=== PATIENT | female | born 1965 | race African-American/Black ===

== ENCOUNTER 2017-01-01 19:47 | Emergency (ER) | payer MEDICAID ==
[~2017-01-01] VITALS: Ht 170.2 cm; Wt 87.5 kg
[~2017-01-01 19:47] MED LIST: IBUP800T24 PO
[2017-01-01 20:55] LABS: Basophils # (auto) 0 uL; Basophils % (auto) 0.1 % (0.0-2.0); DEFINITIVE VIEW TRANSMISSION; Eosinophils # (auto) 0.1 uL; Eosinophils % (auto) 1.4 % (0.0-7.0); Hemoglobin 8.5 g/dL (12.2-16.2); Lymphocytes # (auto) 0.9 uL; Lymphocytes % (auto) 15.6 % (10.0-50.0); Mean Corpuscular Hgb Conc. 31.4 g/dL (32.0-36.0); Mean Corpuscular Volume 73.3 fL (80.0-100.0); Mean Platelet Volume 9.3 fL (7.4-10.4); Monocytes # (auto) 0.2 uL; Monocytes % (auto) 4.4 % (0.0-12.0); Neutrophils # (auto) 4.4 uL; Neutrophils % (auto) 78.5 % (37.0-80.0); Platelet Count (auto) 307 10^3/uL (140-450); Red Cell Distribution Width 17.2 % (11.6-16.0); White Blood Cell 5.6 10^3/uL (4.4-10.8)
[2017-01-01 21:15] LABS: Albumin 2.6 g/dL (3.4-5.0); BUN/Creatinine Ratio 21.6; Calcium 8.6 mg/dL (8.5-10.1); Potassium 3.1 mmol/L (3.5-5.1)
[2017-01-01 21:17] LABS: Bilirubin, Total 0.2 mg/dL (0.2-1.0); Total Protein 7.6 g/dL (6.4-8.2)
[2017-01-02] MEDS ORDERED: POTASSIUM CHL 10% (20 MEQ/15ML) ORAL SOLN PO ONE (08:00)
[2017-01-02] MEDS ORDERED: methylPREDNISolone SOD SUCC 125 MG/2 ML VL IV ONE (08:00)
[2017-01-02] MEDS ORDERED: PROMETHAZINE HCL 25 MG/ML 1ML IV ONE (08:00)
[2017-01-02] MEDS ORDERED: MORPHINE SULF INJ 2 MG/ML SYRINGE 1ML IV ONE (08:00)
[2017-01-02 12:21] VITALS: BP 155/66
== END 2017-01-02 12:58 | disposition home or self-care (01) ==
LOC: ER 19:55
DX: M17.0 Bilateral primary osteoarthritis of knee (principal); G89.29 Other chronic pain; M06.9 Rheumatoid arthritis, unspecified; E87.6 Hypokalemia; E11.65 Type 2 diabetes mellitus with hyperglycemia; E44.0 Moderate protein-calorie malnutrition; Z68.30 Body mass index [BMI] 30.0-30.9, adult; Z79.899 Other long term (current) drug therapy
CPT/HCPCS: 36415; 73562; 80053; 85025; 85652; 96374; 96375; 99285; J2270; J2550; J2930

== ENCOUNTER → 2018-01-07 | Emergency (ER) | payer MEDICAID ==
[~2018-01-07] VITALS: Ht 170.2 cm; Wt 105.2 kg
[~2018-01-07] MED LIST changes: +TRIAMCINOLONE 40MG/ML 1ML VIAL IM ONE
[2018-01-07 19:26] VITALS: BP 154/85
== END | disposition home or self-care (01) ==
LOC: ER 18:57
DX: M17.12 Unilateral primary osteoarthritis, left knee (principal); M06.9 Rheumatoid arthritis, unspecified; M79.646 Pain in unspecified finger(s)
CPT/HCPCS: 20610; 73700; 99284; J3301

== ENCOUNTER 2018-03-09 19:31 | Emergency (ER) | payer MEDICAID, OTHER ==
[~2018-03-09] VITALS: Ht 170.2 cm; Wt 104.3 kg
[~2018-03-09 19:31] MED LIST changes: +AML5T PO; +CHOL20007 PO; +DOCU-94 PO; +FLUT1SPR5; +FOLI1TAB6 PO; +IBUP600T27 PO; -IBUP800T24 PO; +LACT12LO4 EX; +LEVO750T2 PO; +LISI-646 PO; +METF-370 PO; +OXYB15TA12 PO; +SACC250C PO; -TRIAMCINOLONE 40MG/ML 1ML VIAL IM ONE
[2018-03-09 20:17] VITALS: BP 160/97
== END 2018-03-10 00:10 | disposition home or self-care (01) ==
LOC: ER 19:31
DX: M25.561 Pain in right knee (principal); G89.29 Other chronic pain; M19.90 Unspecified osteoarthritis, unspecified site; I10 Essential (primary) hypertension; Z88.5 Allergy status to narcotic agent; Z79.84 Long term (current) use of oral hypoglycemic drugs; Z79.899 Other long term (current) drug therapy
CPT/HCPCS: 73562

== ENCOUNTER 2018-03-10 22:05 | Emergency (ER) | payer MEDICAID, OTHER ==
[~2018-03-10] VITALS: Ht 170.2 cm; Wt 104.3 kg
[2018-03-10 22:24] VITALS: BP 154/92
[2018-03-10] MEDS ORDERED: TRIAMCINOLONE 40MG/ML 1ML VIAL IM ONE (23:45)
[2018-03-11] MEDS ORDERED: DEXAMETHASONE SOD PHOS 10MG/1ML VIAL INJ IM ONE (00:45)
== END 2018-03-11 01:53 | disposition home or self-care (01) ==
LOC: ER 22:08
DX: M17.0 Bilateral primary osteoarthritis of knee (principal); I10 Essential (primary) hypertension; M19.90 Unspecified osteoarthritis, unspecified site; Z88.6 Allergy status to analgesic agent
CPT/HCPCS: 93971; 96372

== ENCOUNTER 2018-04-24 22:31 | Emergency (ER) | payer MEDICAID ==
[~2018-04-24] VITALS: Ht 170.2 cm; Wt 107.0 kg
[~2018-04-24 22:31] MED LIST changes: +LACT12LO EX; -LACT12LO4 EX
[2018-04-24] MEDS ORDERED: cloNIDine HCL 0.1 MG TAB ONE (22:41)
[2018-04-24] MEDS ORDERED: cloNIDine HCL 0.1 MG TAB PO ONE (22:45)
[2018-04-25 01:13] VITALS: BP 132/90
[2018-04-25] MEDS ORDERED: KETOROLAC TROMETH 60MG/2ML VIAL IM ONE (01:45)
== END 2018-04-25 05:46 | disposition home or self-care (01) ==
LOC: ER 22:31
DX: M17.12 Unilateral primary osteoarthritis, left knee (principal); I10 Essential (primary) hypertension; Z79.84 Long term (current) use of oral hypoglycemic drugs; Z79.899 Other long term (current) drug therapy
CPT/HCPCS: 93971; 96372; 99284; J1885

== ENCOUNTER 2018-08-10 15:43 | Inpatient (IN) | payer MEDICAID ==
[~2018-08-10] VITALS: Ht 167.6 cm; Wt 101.3 kg
[~2018-08-10 15:43] MED LIST changes: -LACT12LO EX; -METF-370 PO; -OXYB15TA12 PO; -SACC250C PO
[2018-08-10 16:30] LABS: Basophils # (auto) 0 uL; Eosinophils # (auto) 0.1 uL; Eosinophils % (auto) 0.6 % (0.0-7.0); Monocytes # (auto) 0.5 uL; Monocytes % (auto) 4.5 % (0.0-12.0); Neutrophils # (auto) 9.9 uL
[2018-08-10 16:33] LABS: Basophils % (auto) 0.4 % (0.0-2.0); Hematocrit 20.8 % (36.0-46.0); Lymphocytes # (auto) 0.7 uL; Lymphocytes % (auto) 6.4 % (10.0-50.0); Mean Corpuscular Hemoglobin 22.9 pg (28.0-32.0); Mean Corpuscular Hgb Conc. 29.9 g/dL (32.0-36.0); Mean Corpuscular Volume 76.5 fL (80.0-100.0); Neutrophils % (auto) 88.1 % (37.0-80.0); Nucleated Red Blood Cells % 0.2 %; Platelet Count (auto) 451 10^3/uL (140-450); Red Blood Cells 2.72 10^6/uL (4.0-5.20); White Blood Cell 11.2 10^3/uL (4.4-10.8)
[2018-08-10 16:36] LABS: INR 1.03 (0.9-1.15); Partial Thromboplastin Time 26.2 sec (23.78-33.04)
[2018-08-10 16:40] LABS: Albumin 2.7 g/dL (3.4-5.0); Anion Gap 4 (5-15); Calcium 8.7 mg/dL (8.5-10.1); Carbon Dioxide 26 mmol/L (21-32); Chloride 109 mmol/L (98-107); Glucose 116 mg/dL (74-106); Potassium 4.1 mmol/L (3.5-5.1); Sodium 139 mmol/L (136-145)
[2018-08-10 16:44] LABS: Hemoglobin 6.2 g/dL (12.2-16.2); Red Cell Distribution Width 22.8 % (11.8-14.3)
[2018-08-10 16:45] LABS: Alanine Aminotransferase 14 U/L (13-56); Alkaline Phosphatase 109 U/L (45-117); Aspartate Aminotransferase 10 U/L (15-37); Bilirubin, Total 0.3 mg/dL (0.2-1.0); Total Protein 7.1 g/dL (6.4-8.2)
[2018-08-10] MEDS ORDERED: SODIUM CHLORIDE 0.9% 1,000 ML IVB ONE (17:58)
[2018-08-10] MEDS ORDERED: PANTOPRAZOLE 80 MG in SODIUM CHL 0.9% 60 ML IV ONE (18:00)
[2018-08-10] MEDS ORDERED: PANTOPRAZOLE 40 MG/10 ML VIAL IV ONE (19:15)
[2018-08-10] MEDS ORDERED: OCTREOTIDE ACETATE 100 MCG in SODIUM CHL 0.9% 50 ML IV ONE (19:15)
[2018-08-10 19:45] LABS: BUN/Creatinine Ratio 38.6; Blood Urea Nitrogen 27 mg/dL (7-18)
[2018-08-10 19:46] LABS: GFR African American > 60 mL/min; GFR Non-African American > 60 mL/min
[2018-08-10] MEDS: OCTREOTIDE ACETATE 500 MCG in SODIUM CHL 0.9% 99 ML IV SCH (20:26)
[2018-08-10] MEDS: SODIUM CHLORIDE 0.9% 1,000 ML IV SCH (20:43)
[2018-08-10] MEDS ORDERED: ONDANSETRON HCL 4 MG/2 ML VIAL IV PRN (20:45)
[2018-08-10] MEDS ORDERED: NITROGLYCERIN 0.4 MG SL TAB SL PRN (20:45)
[2018-08-10] MEDS ORDERED: MORPHINE SULFATE 10 MG/ML INJ 1ML SDV IV PRN (20:45)
[2018-08-10] MEDS: PANTOPRAZOLE 80 MG in SODIUM CHL 0.9% 60 ML IV SCH (20:53)
[2018-08-10 20:56] LABS: Urine Bacteria NONE SEEN /hpf (None Seen); Urine Blood Negative /uL (Negative); Urine Specific Gravity 1.017 (1.001-1.035); Urine WBC 1 /hpf (0 - 5)
[2018-08-10 21:37] VITALS: BP 158/75
[2018-08-10 21:53] VITALS: BP 143/71
[2018-08-10] MEDS ORDERED: NALBUPHINE HCL 10 MG/1ml INJECTION IV ONE (22:30)
[2018-08-10 23:10] VITALS: BP 131/62
[2018-08-11 00:09] VITALS: BP 147/76
[2018-08-11 00:25] VITALS: BP 138/72
[2018-08-11 03:39] VITALS: BP 144/73
[2018-08-11] MEDS: OCTREOTIDE ACETATE 500 MCG in SODIUM CHL 0.9% 99 ML IV SCH (05:15)
[2018-08-11 05:48] LABS: Basophils # (auto) 0 uL; Basophils % (auto) 0.4 % (0.0-2.0); Eosinophils # (auto) 0.1 uL; Eosinophils % (auto) 1.4 % (0.0-7.0); Hematocrit 24.9 % (36.0-46.0); Hemoglobin 7.9 g/dL (12.2-16.2); Lymphocytes # (auto) 0.8 uL; Lymphocytes % (auto) 10.1 % (10.0-50.0); Mean Corpuscular Hemoglobin 25.5 pg (28.0-32.0); Mean Corpuscular Hgb Conc. 31.7 g/dL (32.0-36.0); Mean Corpuscular Volume 80.3 fL (80.0-100.0); Monocytes # (auto) 0.5 uL; Monocytes % (auto) 5.5 % (0.0-12.0); Neutrophils # (auto) 6.9 uL; Neutrophils % (auto) 82.6 % (37.0-80.0); Nucleated Red Blood Cells % 0.3 %; Platelet Count (auto) 382 10^3/uL (140-450); White Blood Cell 8.3 10^3/uL (4.4-10.8)
[2018-08-11 05:53] LABS: Red Cell Distribution Width 22.7 % (11.8-14.3)
[2018-08-11 06:08] LABS: Albumin 2.4 g/dL (3.4-5.0); Anion Gap 6 (5-15); Aspartate Aminotransferase 9 U/L (15-37); BUN/Creatinine Ratio 27.3; Blood Urea Nitrogen 18 mg/dL (7-18); Calcium 8.5 mg/dL (8.5-10.1); Carbon Dioxide 25 mmol/L (21-32); Chloride 110 mmol/L (98-107); GFR African American > 60 mL/min; GFR Non-African American > 60 mL/min; Glucose 142 mg/dL (74-106); Potassium 4.2 mmol/L (3.5-5.1); Sodium 141 mmol/L (136-145)
[2018-08-11 06:20] LABS: Alanine Aminotransferase 12 U/L (13-56); Alkaline Phosphatase 96 U/L (45-117); Bilirubin, Total 1.4 mg/dL (0.2-1.0); Total Protein 6.8 g/dL (6.4-8.2)
[2018-08-11] MEDS: PANTOPRAZOLE 80 MG in SODIUM CHL 0.9% 60 ML IV SCH ×2 (07:02→11:13)
[2018-08-11] MEDS ORDERED: HYDROcodone-ACET 5/325MG TAB PO ONE ×2 (07:15→07:30)
[2018-08-11] MEDS: SODIUM CHLORIDE 0.9% 1,000 ML IV SCH ×2 (07:52→17:24)
[2018-08-11] MEDS: MORPHINE SULFATE 10 MG/ML INJ 1ML SDV IV PRN ×2 (08:12→19:41)
[2018-08-11] MEDS ORDERED: SODIUM CHLORIDE LOCK 10 ML ONE (12:04)
[2018-08-11] MEDS ORDERED: LIDOCAINE VISCOUS 2% 15ML UD ONE (12:05)
[2018-08-11] MEDS ORDERED: diphenhdrAMINE HCL 50 MG/1 ML VL ONE (12:05)
[2018-08-11] MEDS ORDERED: fentaNYL CITRATE 100 MCG/2 ML VL ONE (12:05)
[2018-08-11] MEDS ORDERED: MIDAZOLAM HCL 5 MG/ML-1ML VIAL ONE (12:05)
[2018-08-11] MEDS ORDERED: EPINEPHrine HCL 1 MG/10 ML SYRG ONE (12:15)
--- NOTE | 2018-08-11 14:45 | NUR ---
Telemetry admit from ER LUIS DICKENS admitted to Telemetry unit. Patient oriented to Courtney palmer RN, unit, room, bed, and unit policies regarding patient care and visiting hours. Patient now on continuous telemetry monitoring, tele box #[id number] and telemetry reading on arrival to unit is SR 68. Patient weighed by bedscale and encouraged to call if they need something. All questions and concerns addressed, patient verbalized understanding.
[2018-08-11] MEDS ORDERED: FERR-20 PO (15:39)
[2018-08-11 17:07] VITALS: BP 138/77
--- NOTE | 2018-08-11 18:42 | NUR ---
END OF SHIFT PATIENT RESTING IN BED. NO S/S OF DISTRESS. INSTRUCTED PATIENT TO CALL PRN. BED IN LOWEST LOCKED POSITION, CALL LIGHT WITHIN REACH. ENDORSED CARE TO ESTHER HARTMAN.
--- NOTE | 2018-08-11 19:30 | NUR ---
Opening Shift Note Assumed care of patient, awake and alert. No S/S of distress/SOB. Instructed on POC and to call for assist PRN, will continue to monitor for changes Q1hr and PRN.
[2018-08-11] MEDS: PANTOPRAZOLE 40 MG TAB PO SCH (21:12)
[2018-08-11 22:00] VITALS: BP 153/81
[2018-08-12] MEDS: MORPHINE SULFATE 10 MG/ML INJ 1ML SDV IV PRN (03:25)
[2018-08-12 05:00] VITALS: BP 148/82
[2018-08-12] MEDS: SODIUM CHLORIDE 0.9% 1,000 ML IV SCH (05:55)
--- NOTE | 2018-08-12 08:15 | NUR ---
Opening Shift Note Assumed care of patient, awake and alert and oriented x4. No S/S of distress/SOB. Per patient constant generalized body pain from arthritis, will inform MD. Instructed on POC and to call for assist PRN, will continue to monitor for changes.
[2018-08-12 08:58] VITALS: BP 157/85
[2018-08-12] MEDS: PANTOPRAZOLE 40 MG TAB PO SCH ×2 (09:39→22:07)
[2018-08-12] MEDS ORDERED: HYDROcodone-ACET 5/325MG TAB PO PRN (11:45)
[2018-08-12] MEDS ORDERED: LISINOPRIL 20 MG TAB PO ONE (12:15)
[2018-08-12] MEDS ORDERED: amLODIPine BESYLATE 5 MG TAB PO ONE (12:15)
[2018-08-12] MEDS: NALBUPHINE HCL 10 MG/1ml INJECTION IV PRN ×2 (12:22→22:07)
[2018-08-12 13:00] VITALS: BP_SYST 144; BP_SYST 164; BP_DIAS 87; BP_DIAS 91
--- NOTE | 2018-08-12 16:55 | NUR ---
IV insertion IV access obtained, via clean sterile technique by inserting 22 gauge catheter at RFA after 1 attempt. IV secured properly. No trauma to site. Patient tolerated well. Old IV had fallen off, catheter was intact. NOTE:
--- NOTE | 2018-08-12 17:30 | NUR ---
Tolliver catheter dc'd Order to discontinue tolliver catheter. Tolliver dc'd with clean technique following deflation of balloon. Patient tolerated well with no complaints of pain. 1100 mL urine emptied. Continue care.
[2018-08-12 17:36] VITALS: BP 145/86
--- NOTE | 2018-08-12 18:53 | NUR ---
Patient care and report handed off to Omari SANTANA. Omari made aware that patient still needs to void S/P F/C removal.
--- NOTE | 2018-08-12 19:30 | NUR ---
Opening Shift Note Assumed care of patient, awake and alert. No S/S of distress/SOB or pain. Instructed on POC and to call for assist PRN, will continue to monitor for changes Q1hr and PRN.
[2018-08-12 22:00] VITALS: BP 162/89
[2018-08-13] VITALS (17 sets, daily range): BP systolic 124–157; BP diastolic 65–91
[2018-08-13 06:33] LABS: Basophils # (auto) 0 uL; Hematocrit 22.2 % (36.0-46.0); Monocytes # (auto) 0.3 uL; White Blood Cell 6.9 10^3/uL (4.4-10.8)
[2018-08-13 06:35] LABS: Basophils % (auto) 0.3 % (0.0-2.0); Eosinophils # (auto) 0.2 uL; Eosinophils % (auto) 2.2 % (0.0-7.0); Hemoglobin 7.2 g/dL (12.2-16.2); Lymphocytes # (auto) 1.1 uL; Lymphocytes % (auto) 15.6 % (10.0-50.0); Mean Corpuscular Hemoglobin 25.7 pg (28.0-32.0); Mean Corpuscular Hgb Conc. 32.4 g/dL (32.0-36.0); Mean Corpuscular Volume 79.4 fL (80.0-100.0); Monocytes % (auto) 4.8 % (0.0-12.0); Neutrophils # (auto) 5.3 uL; Neutrophils % (auto) 77.1 % (37.0-80.0); Nucleated Red Blood Cells % 0.2 %; Platelet Count (auto) 308 10^3/uL (140-450)
[2018-08-13 06:38] LABS: Red Cell Distribution Width 22.9 % (11.8-14.3)
--- NOTE | 2018-08-13 07:10 | NUR ---
Opening Shift Note REceived report from Omari SANTANA. Assumed care of patient, awake and alert. No S/S of distress/SOB. Reported generalized pain due to arthritis. Instructed on POC and to callfor assist PRN, will continue to monitor for changes Q1hr and PRN.
--- NOTE | 2018-08-13 08:00 | NUR ---
Dr. Card at bedside.
[2018-08-13] MEDS: NALBUPHINE HCL 10 MG/1ml INJECTION IV PRN ×3 (08:05→21:46)
[2018-08-13] MEDS ORDERED: FUROSEMIDE 20 MG/2 ML VIAL IV ONE (08:30)
--- NOTE | 2018-08-13 09:10 | NUR ---
PATIENT ASKED TO BE WASHED UP FIRST BEFORE THE BLOOD TRANSFUSION.
[2018-08-13] MEDS: amLODIPine BESYLATE 5 MG TAB PO SCH (09:26)
[2018-08-13] MEDS: LISINOPRIL 20 MG TAB PO SCH (09:26)
[2018-08-13] MEDS: PANTOPRAZOLE 40 MG TAB PO SCH ×2 (09:26→21:42)
--- NOTE | 2018-08-13 10:12 | NUR ---
BLOOD TRANSFUSION 1 UNIT OF [facility] STARTED, WITNESSED BY RONN SANTANA. WILL MONITOR.
--- NOTE | 2018-08-13 11:59 | NUR ---
PATIENT STILL ON BLOOD TRANSFUSION, WILL HOLD FERRLICIT IV FOR NOW. WILL ADMINISTER AFTER BLOOD TRANSFUSION.
[2018-08-13] MEDS ORDERED: SODIUM FERR GLUC 62.5MG/5ML 125 MG in SODIUM CHL 0.9% 100 ML IV SCH (12:00)
--- NOTE | 2018-08-13 14:12 | NUR ---
BLOOD TRANSFUSION DONE. NO S/SX OF ADVERSE REACTIONS. PATIENT TOLERATED WELL.
--- NOTE | 2018-08-13 14:33 | NUR ---
CALLED PHARMACY TO INFORM THAT BLOOD TRANSFUSION IS DONE, OK TO ADMINISTER FERRLICIT IV NOW.
[2018-08-13] MEDS: SODIUM FERR GLUC 62.5MG/5ML 125 MG in SODIUM CHL 0.9% 100 ML IV SCH (15:13)
--- NOTE | 2018-08-13 15:15 | NUR ---
PATIENT SANCHEZ SNO S/SX OF DISTRESS 1 HOUR POST BLOOD TRANSFUSION. VITAL SIGNS CHECKED. TEMP IS 99F, NOTED 2 BLANKETS ON TOP OF HER. NO OTHER S/SX OF ADVERSE REACTIONS NOTED. WILL CONTINUE TO MONITOR.
--- NOTE | 2018-08-13 19:30 | NUR ---
Opening Shift Note Assumed care of patient, awake and alert. No S/S of distress/SOB or pain. On moderate assist. Discussed on POC and to call for assist PRN, patient verbalized understanding, call light within reach, will continue to monitor for changes Q1hr and PRN.
[2018-08-14 04:51] VITALS: BP 151/97
[2018-08-14] MEDS: NALBUPHINE HCL 10 MG/1ml INJECTION IV PRN ×2 (05:26→09:27)
--- NOTE | 2018-08-14 07:20 | NUR ---
Opening Shift Note REceived report from Helen SANTANA. Assumed care of patient, awake and alert. No S/S of distress/SOB. Reported generalized pain due to arthritis. Noted no s/sx of active bleeding. Instructed on POC and to call for assist PRN, will continue to monitor for changes Q1hr and PRN.
[2018-08-14 07:30] LABS: Hematocrit 27.5 % (36.0-46.0); Hemoglobin 8.8 g/dL (12.2-16.2)
[2018-08-14 07:49] VITALS: BP 148/93
[2018-08-14 08:00] VITALS: BP 148/93
[2018-08-14] MEDS: LISINOPRIL 20 MG TAB PO SCH (09:26)
[2018-08-14] MEDS: amLODIPine BESYLATE 5 MG TAB PO SCH (09:26)
[2018-08-14] MEDS: PANTOPRAZOLE 40 MG TAB PO SCH (09:26)
[2018-08-14] MEDS ORDERED: PANT40T PO (09:27)
--- NOTE | 2018-08-14 09:32 | NUR ---
Dr. Card at bedside.
--- NOTE | 2018-08-14 11:35 | NUR ---
CALLED PHARMACY TO DELIVER THE FERRLICIT IV.
[2018-08-14] MEDS: SODIUM FERR GLUC 62.5MG/5ML 125 MG in SODIUM CHL 0.9% 100 ML IV SCH (12:00)
[2018-08-14 12:10] VITALS: BP 145/81
[2018-08-14 13:03] VITALS: BP 145/81
--- NOTE | 2018-08-14 15:34 | NUR ---
Discharge instructions given as ordered. Encourage to follow up with PMD as instructed. All questions and concerns addressed. Patient verbalized understanding. IV removed with catheter intact, pressure dressing applied. Telemetry unit returned to [facility]. Patient taken to vehicle via wheelchair with all personal belongings, accompanied by staff and family member. No distress noted at time of departure.
== END 2018-08-14 15:35 | disposition home or self-care (01) | DRG 241 ==
LOC: ER 15:47 → OVERFLOW 20:43 → TELE-CENTR 08-11 14:44
PROVIDERS: ADMIT Nurse Practitioner; ATTEND Internal Medicine
PROC: 30233N1 Transfusion of Nonautologous Red Blood Cells into Peripheral Vein, Percutaneous Approach (ICD-10-PCS; principal; 2018-08-10)
PROC: 0DB64ZX Excision of Stomach, Percutaneous Endoscopic Approach, Diagnostic (ICD-10-PCS; 2018-08-11)
DX: K29.71 Gastritis, unspecified, with bleeding (principal); E43 Unspecified severe protein-calorie malnutrition; K29.81 Duodenitis with bleeding; D62 Acute posthemorrhagic anemia; K80.20 Calculus of gallbladder without cholecystitis without obstruction; E66.01 Morbid (severe) obesity due to excess calories; I10 Essential (primary) hypertension; K44.9 Diaphragmatic hernia without obstruction or gangrene; N20.0 Calculus of kidney; M19.90 Unspecified osteoarthritis, unspecified site; K20.9 Esophagitis, unspecified; K42.9 Umbilical hernia without obstruction or gangrene; M06.9 Rheumatoid arthritis, unspecified; J98.11 Atelectasis; Z82.0 Family history of epilepsy and other diseases of the nervous system; Z68.36 Body mass index [BMI] 36.0-36.9, adult
CPT/HCPCS: 36415; 71045; 74176; 80053; 81001; 82150; 83690; 83735; 85014; 85018; 85025; 85610; 85730; 86850; 86900; 86901; 86920; 93005; 94761; 96361; 96365; 96375; 99291; C9113; G0378; J2250; J2405

== ENCOUNTER 2020-10-23 23:48 | Inpatient (IN) | payer MEDICAID ==
[~2020-10-23] VITALS: Ht 170.2 cm; Wt 98.8 kg
[~2020-10-23 23:48] MED LIST changes: +ADAL10IN SC; +ASCO500C49 PO; +CIP500T PO; +FER325T PO; -FLUT1SPR5; -IBUP600T27 PO; -LEVO750T2 PO; -LISI-646 PO; +METO-6 PO
[2020-10-24 06:17] LABS: Basophils # (auto) 0 10 ^3/uL (0-0.2); Basophils % (auto) 0.2 % (0.0-2.0); Eosinophils # (auto) 0.2 10 ^3/uL (0-0.8); Eosinophils % (auto) 4.1 % (0.0-7.0); Hematocrit 30.8 % (36.0-46.0); Hemoglobin 9.7 g/dL (12.2-16.2); Lymphocytes # (auto) 0.9 10 ^3/uL (0.4-5.4); Lymphocytes % (auto) 16.9 % (10.0-50.0); Mean Corpuscular Hemoglobin 23.5 pg (28.0-32.0); Mean Corpuscular Hgb Conc. 31.3 g/dL (32.0-36.0); Mean Corpuscular Volume 74.9 fL (80.0-100.0); Monocytes # (auto) 0.3 10 ^3/uL (0-1.3); Monocytes % (auto) 4.8 % (0.0-12.0); Neutrophils # (auto) 4.1 10 ^3/uL (1.6-8.6); Nucleated Red Blood Cells % 0.1 %; Platelet Count (auto) 207 10^3/uL (140-450); Red Blood Cells 4.11 10^6/uL (4.0-5.20); Red Cell Distribution Width 16.6 % (11.8-14.3); White Blood Cell 5.6 10^3/uL (4.4-10.8)
[2020-10-24 06:29] LABS: INR 1.02 (0.9-1.15)
[2020-10-24 06:33] LABS: Albumin 3.1 g/dL (3.4-5.0); Magnesium 1.8 mg/dL (1.6-2.6)
[2020-10-24 06:37] LABS: BUN/Creatinine Ratio 37.8; Bilirubin, Total 0.2 mg/dL (0.2-1.0); Total Protein 7.3 g/dL (6.4-8.2)
[2020-10-24] MEDS ORDERED: NITROGLYCERIN 0.4 MG SL TAB SL PRN (06:45)
[2020-10-24] MEDS ORDERED: MORPHINE SULFATE 4 MG/ML SYR/VIAL IV PRN (06:45)
[2020-10-24] MEDS ORDERED: ONDANSETRON HCL 4 MG/2 ML VIAL IV PRN (06:45)
[2020-10-24] MEDS ORDERED: TEMAZEPAM 15 MG CAP PO PRN (06:45)
[2020-10-24] MEDS ORDERED: ACETAMINOPHEN 325 MG TAB PO PRN (06:45)
[2020-10-24] MEDS ORDERED: MORPHINE SULF INJ 2 MG/ML SYRINGE 1ML IV PRN (06:45)
[2020-10-24 07:16] LABS: Urine Bacteria NONE SEEN /hpf (None Seen); Urine Blood Negative /uL (Negative); Urine Specific Gravity 1.011 (1.001-1.035); Urine WBC 1 /hpf (0 - 5)
[2020-10-24 08:36] VITALS: BP 157/96
[2020-10-24] MEDS ORDERED: SUCR1SUS5 PO (08:42)
[2020-10-24] MEDS ORDERED: PANT40TA2 PO (08:42)
[2020-10-24] MEDS ORDERED: GABA600T PO (08:42)
[2020-10-24] MEDS: amLODIPine BESYLATE 5 MG TAB PO SCH (08:58)
[2020-10-24] MEDS: METOPROLOL SUCCINATE XL 50 MG TAB PO SCH (08:59)
[2020-10-24 09:00] VITALS: BP 157/96
[2020-10-24] MEDS: FAMOTIDINE 20 MG TAB PO SCH ×2 (09:00→21:16)
[2020-10-24] MEDS ORDERED: LEVE500T32 PO (09:59)
[2020-10-24] MEDS ORDERED: HYDR-4902 PO (10:03)
[2020-10-24] MEDS: HYDROmorphone HCL 2 MG/ML VL IV PRN ×3 (12:28→21:31)
[2020-10-24 12:51] VITALS: BP 158/91
[2020-10-24] MEDS ORDERED: FOLIC ACID 1 MG TAB PO ONE (13:00)
[2020-10-24 13:15] VITALS: BP 117/75
[2020-10-24] MEDS: GABAPENTIN 300 MG CAP PO SCH ×2 (14:55→21:16)
[2020-10-24 17:00] VITALS: BP 151/87
[2020-10-24] MEDS: CALCIUM W/VIT D (600MG/400IU) TAB PO SCH (19:04)
[2020-10-24] MEDS: levETIRAcetam 500 MG TAB PO SCH (21:16)
[2020-10-24] MEDS: DOCUSATE SOD 100 MG CAP PO SCH (21:16)
[2020-10-24 22:00] VITALS: BP 129/75
[2020-10-25] VITALS (9 sets, daily range): BP systolic 84–146; BP diastolic 52–97
[2020-10-25] MEDS: HYDROmorphone HCL 2 MG/ML VL IV PRN (05:06)
[2020-10-25 05:26] LABS: Basophils # (auto) 0 10 ^3/uL (0-0.2); Basophils % (auto) 0.3 % (0.0-2.0); Eosinophils # (auto) 0.2 10 ^3/uL (0-0.8); Eosinophils % (auto) 4.2 % (0.0-7.0); Hematocrit 32.1 % (36.0-46.0); Hemoglobin 9.8 g/dL (12.2-16.2); Lymphocytes # (auto) 1.1 10 ^3/uL (0.4-5.4); Lymphocytes % (auto) 21.4 % (10.0-50.0); Mean Corpuscular Hemoglobin 23.1 pg (28.0-32.0); Mean Corpuscular Hgb Conc. 30.5 g/dL (32.0-36.0); Mean Corpuscular Volume 75.5 fL (80.0-100.0); Monocytes # (auto) 0.3 10 ^3/uL (0-1.3); Monocytes % (auto) 5.3 % (0.0-12.0); Neutrophils # (auto) 3.7 10 ^3/uL (1.6-8.6); Neutrophils % (auto) 68.8 % (37.0-80.0); Nucleated Red Blood Cells % 0.1 %; Platelet Count (auto) 221 10^3/uL (140-450); Red Blood Cells 4.25 10^6/uL (4.0-5.20); Red Cell Distribution Width 16.7 % (11.8-14.3); White Blood Cell 5.4 10^3/uL (4.4-10.8)
[2020-10-25 05:44] LABS: BUN/Creatinine Ratio 34.8; Calcium 9.4 mg/dL (8.5-10.1); Potassium 4.4 mmol/L (3.5-5.1)
[2020-10-25] MEDS: GABAPENTIN 300 MG CAP PO SCH ×3 (05:46→22:29)
[2020-10-25] MEDS: CALCIUM W/VIT D (600MG/400IU) TAB PO SCH ×2 (08:00→17:00)
[2020-10-25] MEDS: amLODIPine BESYLATE 5 MG TAB PO SCH (08:43)
[2020-10-25] MEDS: DOCUSATE SOD 100 MG CAP PO SCH ×2 (08:43→22:29)
[2020-10-25] MEDS: METOPROLOL SUCCINATE XL 50 MG TAB PO SCH (08:43)
[2020-10-25] MEDS: FOLIC ACID 1 MG TAB PO SCH (08:43)
[2020-10-25] MEDS: levETIRAcetam 500 MG TAB PO SCH ×2 (08:43→22:29)
[2020-10-25] MEDS: FAMOTIDINE 20 MG TAB PO SCH ×2 (08:43→22:29)
[2020-10-25] MEDS ORDERED: ceFAZolin 1GM/50ML 100 ML IV ONE (08:46)
[2020-10-25] MEDS ORDERED: TETRACAINE 1% INJ 2 ML VIAL IJ ONE (10:37)
[2020-10-25] MEDS ORDERED: TRANEXAMIC ACID 20 ML ONE (10:37)
[2020-10-25] MEDS ORDERED: BUPIVACAINE 0.25% INJ 50ML VIAL ONE (10:37)
[2020-10-25] MEDS ORDERED: VANCOMYCIN HCL 1000 MG VL ONE (10:48)
[2020-10-25] MEDS ORDERED: EPINEPHrine HCL 1 MG/1 ML AMP ONE (10:48)
[2020-10-25] MEDS ORDERED: MORPHINE SULF(PF) 0.5MG/ML 10ML VIAL ONE ×2 (10:51→11:15)
[2020-10-25] MEDS ORDERED: KETOROLAC TROMETH 30 MG/ML 1ML VIAL ONE (10:51)
[2020-10-25] MEDS ORDERED: fentaNYL CITRATE 100 MCG/2 ML VL ONE (11:15)
[2020-10-25] MEDS ORDERED: MIDAZOLAM HCL 1MG/1ML-2 ML VIAL ONE (11:15)
[2020-10-25] MEDS ORDERED: PROPOFOL 10 MG/ML 20 ML IV ONE (13:05)
[2020-10-25] MEDS ORDERED: ONDANSETRON HCL 4 MG/2 ML VIAL ONE (13:10)
[2020-10-25] MEDS ORDERED: KETOROLAC TROMETH 30 MG/ML 1ML VIAL IV PRN (14:00)
[2020-10-25] MEDS ORDERED: DexAMETHasone SOD PHOS 10MG/1ML VIAL INJ IV PRN (14:00)
[2020-10-25] MEDS ORDERED: NALOXONE HCL 0.4 MG/ML VIAL IV PRN (14:00)
[2020-10-25] MEDS: ceFAZolin 1GM 2 GM in D5W 5% 100 ML IV SCH ×2 (14:00→22:30)
[2020-10-25] MEDS ORDERED: ONDANSETRON HCL 4 MG/2 ML VIAL IV PRN (14:00)
[2020-10-25] MEDS ORDERED: NALBUPHINE HCL 10 MG/1ml INJECTION SUBCUT ONE (14:00)
[2020-10-25] MEDS ORDERED: HYDROmorphone HCL 2 MG/ML VL IV PRN ×2 (14:00)
[2020-10-25] MEDS ORDERED: diphenhdrAMINE HCL 50 MG/1 ML VL IV PRN (14:00)
[2020-10-25] MEDS: LACTATED RINGER'S 1,000 ML IV SCH (14:00)
[2020-10-25] MEDS: KETOROLAC TROMETH 30 MG/ML 1ML VIAL IV SCH (17:00)
[2020-10-26] VITALS (23 sets, daily range): BP systolic 92–141; BP diastolic 59–96
[2020-10-26] MEDS: LACTATED RINGER'S 1,000 ML IV SCH ×3 (04:45→20:41)
[2020-10-26] MEDS: KETOROLAC TROMETH 30 MG/ML 1ML VIAL IV SCH ×4 (06:33→17:59)
[2020-10-26] MEDS: GABAPENTIN 300 MG CAP PO SCH ×3 (06:33→21:55)
[2020-10-26 08:00] LABS: Eosinophils # (auto) 0.2 10 ^3/uL (0-0.8); Nucleated Red Blood Cells % 0.1 %
[2020-10-26] MEDS: CALCIUM W/VIT D (600MG/400IU) TAB PO SCH ×2 (08:04→17:59)
[2020-10-26 08:06] LABS: Basophils # (auto) 0 10 ^3/uL (0-0.2); Basophils % (auto) 0.3 % (0.0-2.0); Eosinophils % (auto) 3.9 % (0.0-7.0); Hematocrit 25.7 % (36.0-46.0); Lymphocytes % (auto) 16.1 % (10.0-50.0); Mean Corpuscular Hemoglobin 23.5 pg (28.0-32.0); Mean Corpuscular Hgb Conc. 31.1 g/dL (32.0-36.0); Mean Corpuscular Volume 75.5 fL (80.0-100.0); Monocytes # (auto) 0.5 10 ^3/uL (0-1.3); Monocytes % (auto) 7.8 % (0.0-12.0); Neutrophils # (auto) 4.3 10 ^3/uL (1.6-8.6); Neutrophils % (auto) 71.9 % (37.0-80.0); Platelet Count (auto) 165 10^3/uL (140-450); Red Cell Distribution Width 16.6 % (11.8-14.3)
[2020-10-26 08:20] LABS: Calcium 8.1 mg/dL (8.5-10.1); Potassium 4.9 mmol/L (3.5-5.1)
[2020-10-26 08:24] LABS: BUN/Creatinine Ratio 43.9
[2020-10-26] MEDS: ENOXAPARIN SOD 40 MG/0.4 ML SYRINGE SC SCH (10:00)
[2020-10-26] MEDS ORDERED: ENOXAPARIN SOD 40 MG/0.4 ML SYRINGE SC SCH (10:00)
[2020-10-26] MEDS: METOPROLOL SUCCINATE XL 50 MG TAB PO SCH (10:00)
[2020-10-26] MEDS: levETIRAcetam 500 MG TAB PO SCH ×2 (10:29→21:55)
[2020-10-26] MEDS: FAMOTIDINE 20 MG TAB PO SCH ×2 (10:29→21:55)
[2020-10-26] MEDS: FOLIC ACID 1 MG TAB PO SCH (10:29)
[2020-10-26] MEDS: DOCUSATE SOD 100 MG CAP PO SCH ×2 (10:30→21:55)
[2020-10-26] MEDS ORDERED: FUROSEMIDE 20 MG/2 ML VIAL IV ONE (12:45)
[2020-10-26] MEDS: HYDROcodone-ACET 10/325MG TAB PO PRN (21:55)
[2020-10-27] MEDS: KETOROLAC TROMETH 30 MG/ML 1ML VIAL IV SCH ×4 (00:39→17:31)
[2020-10-27 05:00] VITALS: BP 106/59
[2020-10-27] MEDS: LACTATED RINGER'S 1,000 ML IV SCH (05:31)
[2020-10-27] MEDS: GABAPENTIN 300 MG CAP PO SCH ×3 (05:32→21:43)
[2020-10-27 06:23] LABS: Basophils # (auto) 0 10 ^3/uL (0-0.2); Basophils % (auto) 0.7 % (0.0-2.0); Eosinophils # (auto) 0.3 10 ^3/uL (0-0.8); Eosinophils % (auto) 5.5 % (0.0-7.0); Hematocrit 25.7 % (36.0-46.0); Hemoglobin 8.2 g/dL (12.2-16.2); Lymphocytes # (auto) 0.8 10 ^3/uL (0.4-5.4); Lymphocytes % (auto) 15.2 % (10.0-50.0); Mean Corpuscular Hemoglobin 24.2 pg (28.0-32.0); Mean Corpuscular Volume 75.5 fL (80.0-100.0); Monocytes # (auto) 0.4 10 ^3/uL (0-1.3); Monocytes % (auto) 6.7 % (0.0-12.0); Neutrophils # (auto) 3.8 10 ^3/uL (1.6-8.6); Neutrophils % (auto) 71.9 % (37.0-80.0); Nucleated Red Blood Cells % 0.1 %; Platelet Count (auto) 145 10^3/uL (140-450); Red Cell Distribution Width 16.5 % (11.8-14.3); White Blood Cell 5.3 10^3/uL (4.4-10.8)
[2020-10-27] MEDS: DOCUSATE SOD 100 MG CAP PO SCH ×2 (08:41→21:42)
[2020-10-27] MEDS: METOPROLOL SUCCINATE XL 50 MG TAB PO SCH (08:41)
[2020-10-27] MEDS: CALCIUM W/VIT D (600MG/400IU) TAB PO SCH ×2 (08:41→17:30)
[2020-10-27] MEDS: ENOXAPARIN SOD 40 MG/0.4 ML SYRINGE SC SCH (08:42)
[2020-10-27] MEDS: FOLIC ACID 1 MG TAB PO SCH (08:42)
[2020-10-27] MEDS: FAMOTIDINE 20 MG TAB PO SCH ×2 (08:42→21:42)
[2020-10-27] MEDS: levETIRAcetam 500 MG TAB PO SCH ×2 (08:42→21:42)
[2020-10-27 09:00] VITALS: BP 106/64
[2020-10-27] MEDS ORDERED: HYDROmorphone HCL 2 MG/ML VL IV PRN (09:30)
[2020-10-27] MEDS: HYDROcodone-ACET 10/325MG TAB PO PRN ×2 (11:41→21:11)
[2020-10-27 12:56] VITALS: BP 109/65
[2020-10-27 17:00] VITALS: BP 109/73
[2020-10-27 22:00] VITALS: BP 116/61
[2020-10-28] MEDS: KETOROLAC TROMETH 30 MG/ML 1ML VIAL IV SCH ×3 (00:32→11:24)
[2020-10-28 05:00] VITALS: BP 122/75
[2020-10-28 05:30] LABS: Hematocrit 25.9 % (36.0-46.0)
[2020-10-28] MEDS: GABAPENTIN 300 MG CAP PO SCH ×2 (06:25→13:58)
[2020-10-28] MEDS: HYDROcodone-ACET 10/325MG TAB PO PRN ×3 (08:31→18:29)
[2020-10-28] MEDS: CALCIUM W/VIT D (600MG/400IU) TAB PO SCH (08:31)
[2020-10-28] MEDS: FOLIC ACID 1 MG TAB PO SCH (08:54)
[2020-10-28] MEDS: levETIRAcetam 500 MG TAB PO SCH (08:55)
[2020-10-28] MEDS: FAMOTIDINE 20 MG TAB PO SCH (08:55)
[2020-10-28] MEDS: DOCUSATE SOD 100 MG CAP PO SCH (08:56)
[2020-10-28] MEDS: ENOXAPARIN SOD 40 MG/0.4 ML SYRINGE SC SCH (08:56)
[2020-10-28 09:00] VITALS: BP 115/62
[2020-10-28] MEDS ORDERED: CALC600T80 PO (12:47)
[2020-10-28] MEDS ORDERED: RIVA10TA PO (12:47)
[2020-10-28] MEDS ORDERED: DOCU100C10 PO (12:47)
[2020-10-28 13:00] VITALS: BP 115/67
[2020-10-28 15:01] VITALS: BP 106/64
[2020-10-28 17:00] VITALS: BP 131/44
== END 2020-10-28 19:35 | disposition home health service (06) | DRG 301 ==
LOC: EDBD 23:48 → ER 23:50 → OVERFLOW 23:51 → WEST WING 10-24 07:40
PROVIDERS: ADMIT Nurse Practitioner; ATTEND Internal Medicine
PROC: 0SRS0J9 Replacement of Left Hip Joint, Femoral Surface with Synthetic Substitute, Cemented, Open Approach (ICD-10-PCS; principal; 2020-10-25 11:26)
PROC: 30233N1 Transfusion of Nonautologous Red Blood Cells into Peripheral Vein, Percutaneous Approach (ICD-10-PCS; 2020-10-26)
DX: M84.459A Pathological fracture, hip, unspecified, initial encounter for fracture (principal); R56.9 Unspecified convulsions; M06.9 Rheumatoid arthritis, unspecified; E66.9 Obesity, unspecified; I10 Essential (primary) hypertension; K43.9 Ventral hernia without obstruction or gangrene; D63.8 Anemia in other chronic diseases classified elsewhere; M85.80 Other specified disorders of bone density and structure, unspecified site; M17.0 Bilateral primary osteoarthritis of knee; D62 Acute posthemorrhagic anemia; E11.9 Type 2 diabetes mellitus without complications; Z82.0 Family history of epilepsy and other diseases of the nervous system; Z82.49 Family history of ischemic heart disease and other diseases of the circulatory system; Z88.5 Allergy status to narcotic agent; Z83.3 Family history of diabetes mellitus; Z87.440 Personal history of urinary (tract) infections; Z20.822 Contact with and (suspected) exposure to COVID-19; Z68.31 Body mass index [BMI] 31.0-31.9, adult
CPT/HCPCS: 36415; 71045; 72170; 73502; 80048; 80053; 81001; 83735; 85014; 85018; 85025; 85610; 86850; 86900; 86901; 86920; 87081; 87426; 93005; 93971; 96374; 97110; 97530; A4565; G0378; J0171; J0690; J1885; J2250; J2405; J2704; J3490; J7060

== ENCOUNTER 2021-05-28 19:26 | Emergency (ER) | payer MEDICAID ==
[~2021-05-28] VITALS: Ht 170.2 cm; Wt 86.2 kg
[~2021-05-28 19:26] MED LIST changes: -AML5T PO; +CALC600T80 PO; -CIP500T PO; +DOCU100C10 PO; +GABA600T PO; +HYDR-4902 PO; +LEVE500T32 PO; -METO-6 PO; +PANT40TA2 PO; +RIVA10TA PO; +SUCR1SUS5 PO
[2021-05-29 00:15] VITALS: BP 218/123
== END 2021-05-29 01:17 | disposition home or self-care (01) ==
LOC: ER 19:29
DX: I10 Essential (primary) hypertension (principal); Z79.899 Other long term (current) drug therapy; Z88.5 Allergy status to narcotic agent